=== PATIENT | female | born 2000 | race Caucasian/White ===

== ENCOUNTER → 2018-06-10 01:53 | Emergency (ER) | payer OTHER ==
[~2018-06-10 01:53] MED LIST: Al Hydrox/Mg Hydrox/Simet LIQ* 30 ML UDC PO ONE; Lidocaine 2% VISCOUS* 15 ML UDC PO ONE
--- NOTE | 2018-06-10 02:51 | ED ---
Throat Pain/Nasal Congestion - HPI Summary HPI Summary: Patient is a 17 y/o F presenting to ED with concerns of esophageal yeast infection. She reports difficulty swallowing, throat pain. Patient notes that she has been on three different antibiotics in the past month for treatment of sinus infection, UTI, and BV. Last finished antibiotics five days ago, last antibiotic taken was Augmentin. 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 She notes that she was able to eat today. No PMHx, no FMHx, patient does not drink, smoke, or use drugs. On triage, pain is denied. Nothing is noted to aggravate/alleviate Sx. Home medications and allergies are reviewed. - History of Current Complaint Chief Complaint: EDThroatPain Time Seen by Provider: 06/10/18 02:42 Hx Obtained From: Patient Onset/Duration: Still Present Severity: Mild Associated Signs And Symptoms: Positive: Dysphagia Cough: None - Allergies/Home Medications Allergies/Adverse Reactions: Allergies Allergy/AdvReac Type Severity Reaction Status Date / Time No Known Allergies Allergy Verified 06/10/18 02:04 PMH/Surg Hx/FS Hx/Imm Hx Sensory History: Denies: Hx Legally Blind, Hx Deafness Opthamlomology History: Denies: Hx Legally Blind EENT History: Denies: Hx Deafness Infectious Disease History: No Infectious Disease History: Denies: Traveled Outside the [place] in Last 30 Days - Family History Known Family History: Negative: Hypertension, Diabetes - Social History Alcohol Use: None Substance Use Type: Reports: None Smoking Status (MU): Never Smoked Tobacco Review of Systems Negative: Fever - on vitals, temp is 98.3 F ENT: Other - POSITIVE - DYSPHAGIA Positive: Sore Throat All Other Systems Reviewed And Are Negative: Yes Physical Exam - Summary Physical Exam Summary: VITAL SIGNS: Reviewed. GENERAL: Patient is a well-developed and nourished female who is lying comfortable in the stretcher. Patient is not in any acute respiratory distress. HEAD AND FACE: No signs of trauma. No ecchymosis, hematomas or skull depressions. No sinus tenderness. EYES: PERRLA, EOMI x 2, No injected conjunctiva, no nystagmus. EARS: Hearing grossly intact. Ear canals and tympanic membranes are within normal limits. MOUTH: Oropharynx within normal limits. No evidence of thrush. Patient has a coated tongue, no redness. NECK: Supple, trachea is midline, no adenopathy, no JVD, no carotid bruit, no c- spine tenderness, neck with full ROM. CHEST: Symmetric, no tenderness at palpation LUNGS: Clear to auscultation bilaterally. No wheezing or crackles. CVS: Regular rate and rhythm, S1 and S2 present, no murmurs or gallops appreciated. ABDOMEN: Soft, non-tender. No signs of distention. No rebound no guarding, and no masses palpated. Bowel sounds are normal. EXTREMITIES: FROM in all major joints, no edema, no cyanosis or clubbing. NEURO: Alert and oriented x 3. No acute neurological deficits. Speech is normal and follows commands. SKIN: Dry and warm Triage Information Reviewed: Yes Vital Signs On Initial Exam: Initial Vitals Temp Pulse Resp BP Pulse Ox 98.3 F 79 16 123/78 98 06/10/18 02:03 06/10/18 02:03 06/10/18 02:03 06/10/18 02:03 06/10/18 02:03 Vital Signs Reviewed: Yes Diagnostics - Vital Signs Vital Signs Temp Pulse Resp BP Pulse Ox 06/10/18 02:03 98.3 F 79 16 123/78 98 - Laboratory Lab Statement: Any lab studies that have been ordered have been reviewed, and results considered in the medical decision making process. EENT Course/Dx - Course Course Of Treatment: Patient is a 17 y/o F presenting to ED with concerns of esophageal yeast infection. She reports difficulty swallowing, throat pain. Patient notes that she has been on three different antibiotics in the past month for treatment of sinus infection, UTI, and BV. Last finished antibiotics five days ago, last antibiotic taken was Augmentin. 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 She notes that she was able to eat today. No PMHx, no FMHx, patient does not drink, smoke, or use drugs. On physical exam, no evidence of thrush is noted, patient has a coated tongue, no redness, no adenopathy, patient was able to eat today. During ED course, patient received lidocaine 15 ml PO, Maalox Plus 30 ml PO. Patient was discharged to home and instructed to follow up with PCP, she is agreeable with this. - Diagnoses Provider Diagnoses: Sore throat Discharge - Sign-Out/Discharge Documenting (check all that apply): Patient Departure - discharge Patient Received Moderate/Deep Sedation with Procedure: No - Discharge Plan Condition: Stable Disposition: HOME Prescriptions: Lidocaine 2% VISCOUS* 10 ml MT TID PRN #1 [id number] PRN Reason: Pain Patient Education Materials: Dysphagia (ED) Referrals: Irina Rowe [facility]ER [Primary Care Provider] - 3 Days Additional Instructions: PLEASE RETURN TO THE EMERGENCY DEPARTMENT IMMEDIATELY FOR WORSENING OR CONCERNING SYMPTOMS. FOLLOW UP WITH YOUR PRIMARY CARE PHYSICIAN WITHIN THREE DAYS. - Attestation Statements Document Initiated by Scribe: Yes Documenting Scribe: MIRELLA ALMANZA Provider For Whom Scribe is Documenting (Include Credential): KIE MCCAIN MD Scribe Attestation: MIRELLA Baldwin, scribed for IKE MCCAIN MD on 06/10/18 at 0350. Status of Scribe Document: Ready
[2018-06-10 04:49] VITALS: BP 120/69
== END | disposition home or self-care (01) ==
LOC: ED 01:53
DX: J02.9 Acute pharyngitis, unspecified (principal)
CPT/HCPCS: 99282; A9270-GY

== ENCOUNTER 2018-06-22 20:26 | Emergency (ER) | payer OTHER ==
--- NOTE | 2018-06-22 22:01 | ED ---
HPI Chest Pain - HPI Summary HPI Summary: 17 year old female presents with chest pain today. States it feels like a tightness. she states it is a sharp pain. She admits to shortness of breath that has resolved. she had some tingling in her extremities. States it feels different than her normal anxiety. She denies any bowel pain. no nausea vomiting. No recent illness. Doesn't change with positional changes. Nothing makes it better or worse. has never had this before. no recent illness. No recent surgeries. No pain or swelling in her calf muscle. Is not on control. No family history of cardiac disease or blood clots. - History of Current Complaint Chief Complaint: EDChestPainROMI Time Seen by Provider: 06/22/18 21:54 Pain Intensity: 4 - Allergy/Home Medications Allergies/Adverse Reactions: Allergies Allergy/AdvReac Type Severity Reaction Status Date / Time No Known Allergies Allergy Verified 06/10/18 02:04 PMH/Surg Hx/FS Hx/Imm Hx Endocrine/Hematology History: Denies: Hx Anticoagulant Therapy Cardiovascular History: Denies: Hx Hypertension, Hx Myocardial Infarction Sensory History: Denies: Hx Legally Blind, Hx Deafness Opthamlomology History: Denies: Hx Legally Blind Infectious Disease History: No Infectious Disease History: Denies: Traveled Outside the [place] in Last 30 Days - Family History Known Family History: Negative: Cardiac Disease, Hypertension, Diabetes, Blood Disorder - Social History Alcohol Use: None Substance Use Type: Reports: None Smoking Status (MU): Never Smoked Tobacco Review of Systems Negative: Fever Positive: Chest Pain Positive: Shortness Of Breath. Negative: Cough Negative: Abdominal Pain All Other Systems Reviewed And Are Negative: Yes Physical Exam Triage Information Reviewed: Yes Vital Signs On Initial Exam: Initial Vitals Temp Pulse Resp BP Pulse Ox 98.7 F 87 16 138/74 98 06/22/18 20:33 06/22/18 20:33 06/22/18 20:33 06/22/18 20:33 06/22/18 20:33 Vital Signs Reviewed: Yes Appearance: Positive: Well-Appearing Skin: Positive: Warm, Dry Head/Face: Positive: Normal Head/Face Inspection Eyes: Positive: Normal, EOMI, PIEDAD, Conjunctiva Clear ENT: Positive: Pharynx normal Respiratory/Lung Sounds: Positive: Clear to Auscultation, Breath Sounds Present Cardiovascular: Positive: Normal, RRR Abdomen Description: Positive: Nontender, Soft Bowel Sounds: Positive: Present Musculoskeletal: Positive: Normal Neurological: Positive: Normal Psychiatric: Positive: Normal Diagnostics - Vital Signs Vital Signs Temp Pulse Resp BP Pulse Ox 06/22/18 20:33 98.7 F 87 16 138/74 98 - Laboratory Result Diagrams: 06/22/18 22:11 06/22/18 22:11 Lab Statement: Any lab studies that have been ordered have been reviewed, and results considered in the medical decision making process. - Radiology chest Radiology Interpretation Completed By: ED Physician Summary of Radiographic Findings: no active disease - EKG No standard instances Cardiac Rate: NL EKG Rhythm: Sinus Rhythm Summary of EKG Findings: sinus rhythm Re-Evaluation - Re-Evaluation First Eval Re-Evaluation Time: 22:48 Change: Improved Comment: discussed results, discussed likely anxiety causing symptoms Chest Pain Course/Dx - Course Course Of Treatment: 17 year old female presents with chest pain today. States it feels like a tightness. she states it is a sharp pain. She admits to shortness of breath that has resolved. she had some tingling in her extremities. States it feels different than her normal anxiety. She denies any bowel pain. no nausea vomiting. No recent illness. Doesn't change with positional changes. Nothing makes it better or worse. has never had this before. no recent illness. No recent surgeries. No pain or swelling in her calf muscle. Is not on control. No family history of cardiac disease or blood clots. On exam patient appears anxious. Lungs clear to auscultation. Heart regular rate and rhythm. EKG shows sinus rhythm. Lab work wnl. chest xray normal. has no risk factors for cardiac disease and does not use any drugs. well criteria zero. Discussed likely anxiety reaction. Told to relax. Patient understands agrees with plan. - Chest Pain Differential Diagnosis/HQI/PQRI: Acute HI, Chest Wall, Lower Respiratory Infection, Pulmonary Embolism - Diagnoses Provider Diagnoses: Chest pain, Anxiety Discharge - Sign-Out/Discharge Documenting (check all that apply): Patient Departure Patient Received Moderate/Deep Sedation with Procedure: No - Discharge Plan Condition: Good Disposition: HOME Patient Education Materials: Noncardiac Chest Pain (ED) Referrals: Irina Rowe NP [Primary Care Provider] - Additional Instructions: take tyenlol or ibuprofen for pain Try to manage stress and relax Return to ED if develop any new or worsening symptoms - Billing Disposition and Condition Condition: GOOD Disposition: Home
[2018-06-22 22:26] LABS: ABS Basophils 0 10^3/ul (0-0.2); ABS Eosinophils 0 10^3/ul (0-0.6); ABS Lymphocytes 2.2 10^3/ul (1.0-4.8); ABS Monocytes 0.3 10^3/ul (0-0.8); ABS Neutrophils 3.1 10^3/ul (1.5-7.7); ABS Nucleated RBC 0 10^3/ul; Eosinophil % 0.7 %; Hematocrit 38 % (33-41); Hemoglobin 12.8 g/dL (12.0-16.0); Lymphocyte % 38.2 %; Mean Corpuscular HGB Conc 34 g/dL (31-36); Mean Corpuscular Hemoglobin 30 pg (27-31); Mean Corpuscular Volume 88 fL (80-97); Mean Platelet Volume 9.2 fL (7.4-10.4); Nucleated Red Blood Cells % 0.1; Platelet Count 165 10^3/uL (150-450); Red Blood Count 4.34 10^6 /uL (3.70-4.87); Red Cell Distribution Width 14 % (10.5-15); White Blood Count 5.7 10^3/uL (3.5-10.8)
[2018-06-22 22:37] LABS: ALT 10 U/L (7-52); AST 13 U/L (13-39); Albumin 4.7 g/dL (3.2-5.2); Albumin/Globulin Ratio 2.6 (1-3); Alkaline Phosphatase 66 U/L (34-104); Anion Gap 7 mmol/L (2-11); BUN/Creatinine Ratio 15.4 (8-20); Blood Urea Nitrogen 10 mg/dL (6-24); C Reactive Protein < 1.00 mg/L (<8.01); CO2 Carbon Dioxide 26 mmol/L (22-32); Calcium 9.7 mg/dL (8.6-10.3); Chloride 106 mmol/L (101-111); EGFR African American 142.1 (>60); EGFR Non-African American 117.4 (>60); Globulin 1.8 g/dL (2-4); Glucose 94 mg/dL (70-100); Potassium 3.7 mmol/L (3.5-5.0); Sodium 139 mmol/L (135-145); Total Protein 6.5 g/dL (6.4-8.9)
[2018-06-22 22:40] LABS: Troponin I 0.01 ng/mL (<0.04)
[2018-06-22 22:43] LABS: HCG Pregnancy < 0.60 mIU/mL
[2018-06-22 22:57] VITALS: BP 111/76
== END 2018-06-22 22:56 | disposition home or self-care (01) ==
LOC: ED 20:26
DX: R07.9 Chest pain, unspecified (principal); R06.02 Shortness of breath; F41.9 Anxiety disorder, unspecified
CPT/HCPCS: 36415; 71046; 80053; 84484; 84702; 85025; 86140; 93005; 99282

== ENCOUNTER 2018-06-25 20:00 | Emergency (ER) | payer OTHER ==
[2018-06-25 21:56] LABS: Rapid Strep Molecular Negative (Negative)
--- NOTE | 2018-06-25 22:07 | ED ---
Throat Pain/Nasal Congestion - HPI Summary HPI Summary: 17 y/o female with no significant PMH, presents today complaining of sore throat. she states that in the past month she has been seen at [facility] and treated for a vaginal yeast infection, bacterial vaginosis, a sinus infection, oral thrush. She states that the white coating on her tongue is persistent despite therapy. She has no tongue pain. She also complains of a antolin-anal burning sensation after defecation. She is having normal stool but the stool is coated with a yellowish film. She has had a weekly course of Diflucan for multiple weeks. She is concerned she may have a perirectal or esophageal candidiasis. She has no risk factors for esophageal candidiasis. She has had sore throat and right tonsillar swelling for 2 days. - History of Current Complaint Chief Complaint: EDThroatPain Time Seen by Provider: 06/25/18 21:17 Hx Obtained From: Patient Onset/Duration: Gradual Onset Severity: Moderate Associated Signs And Symptoms: Positive: Negative Cough: None Related History: Other (Noted In Comments) - Epiglottits Risk Factors Epiglottis Risk Factors: Negative - Allergies/Home Medications Allergies/Adverse Reactions: Allergies Allergy/AdvReac Type Severity Reaction Status Date / Time No Known Allergies Allergy Verified 06/10/18 02:04 Home Medications: Home Medications NK [No Home Medications Reported] 06/25/18 [History Confirmed 06/25/18] PMH/Surg Hx/FS Hx/Imm Hx Endocrine/Hematology History: Denies: Hx Anticoagulant Therapy Cardiovascular History: Denies: Hx Hypertension, Hx Myocardial Infarction Sensory History: Denies: Hx Legally Blind, Hx Deafness Opthamlomology History: Denies: Hx Legally Blind Infectious Disease History: No Infectious Disease History: Denies: Traveled Outside the [place] in Last 30 Days - Family History Known Family History: Negative: Cardiac Disease, Hypertension, Diabetes, Blood Disorder - Social History Alcohol Use: None Substance Use Type: Reports: None Smoking Status (MU): Never Smoked Tobacco Review of Systems Constitutional: Negative Negative: Fever, Chills Eyes: Negative Negative: Drainage, Erythema Positive: Sore Throat. Negative: Epistaxis, Ear Ache, Nasal Discharge Cardiovascular: Negative Negative: Chest Pain Respiratory: Negative Negative: Shortness Of Breath, Cough Gastrointestinal: Negative Negative: Abdominal Pain, Vomiting, Diarrhea, Nausea Genitourinary: Negative Negative: dysuria, pain, urgency Musculoskeletal: Negative Skin: Negative Negative: Rash Neurological: Negative Negative: Headache All Other Systems Reviewed And Are Negative: Yes Physical Exam Triage Information Reviewed: Yes Vital Signs On Initial Exam: Initial Vitals Temp Pulse Resp BP Pulse Ox 97 F 86 18 126/88 96 06/25/18 20:13 06/25/18 20:13 06/25/18 20:13 06/25/18 20:13 06/25/18 20:13 Vital Signs Reviewed: Yes Appearance: Positive: Well-Appearing Skin: Positive: Warm, Dry Eyes: Positive: Normal, EOMI, Conjunctiva Clear. Negative: Discharge ENT: Positive: Pharyngeal erythema, Uvula midline. Negative: Nasal congestion, Nasal drainage, Tonsillar exudate, Hoarse voice, Dental tenderness, Sinus tenderness Dental: Negative: Dental Fracture @, Bleeding Neck: Positive: Supple, Nontender, No Lymphadenopathy Respiratory/Lung Sounds: Positive: Clear to Auscultation, Breath Sounds Present. Negative: Rales, Rhonchi, Wheezes Cardiovascular: Positive: Normal, RRR, S1, S2. Negative: Murmur Abdomen Description: Positive: Nontender, Soft. Negative: Distended Musculoskeletal: Positive: Normal Neurological: Positive: Normal, Alert, Oriented to Person Place, Time. Negative : Disoriented Psychiatric: Positive: Anxious Diagnostics - Vital Signs Vital Signs Temp Pulse Resp BP Pulse Ox 06/25/18 20:13 97 F 86 18 126/88 96 - Laboratory Lab Results: Lab Results 06/25/18 Range/Units 21:30 Group A Strep Rapid Negative (Negative) Lab Statement: Any lab studies that have been ordered have been reviewed, and results considered in the medical decision making process. EENT Course/Dx - Course Course Of Treatment: rapid strep is negative. the patient no longer has evidence of oral thrush. She likely has a viral illness. She was advised to treat with OPD meds and follow-up with GI for the perianal burning. Throat culture sent. She was told that if the culture became positive, she would receive a phone call. Assessment/Plan: Assessment: pharyngitis. Plan: STable for discharge. - Differential Diagnoses Differential Diagnoses: Pharyngitis, Other - viral illness, anxiety, inflammatory bowel disease - Diagnoses Provider Diagnoses: Pharyngitis Discharge - Sign-Out/Discharge Documenting (check all that apply): Patient Departure Patient Received Moderate/Deep Sedation with Procedure: No - Discharge Plan Condition: Stable Disposition: HOME Patient Education Materials: Pharyngitis (ED) Print Language: YI Referrals: Irina Rowe NP [Primary Care Provider] - - Billing Disposition and Condition Condition: STABLE Disposition: Home
[2018-06-25 22:25] VITALS: BP 119/71
== END 2018-06-25 22:24 | disposition home or self-care (01) ==
LOC: ED 20:00
DX: J02.9 Acute pharyngitis, unspecified (principal)
CPT/HCPCS: 87070; 87651; 99281